=== PATIENT | female | born 1945 | race Caucasian/White ===

== ENCOUNTER 2024-04-29 14:23 | Emergency (ER) | payer SELFPAY ==
[~2024-04-29] VITALS: Ht 157.5 cm; Wt 81.6 kg
[2024-04-29 14:34] VITALS: PULSE 61; RESP 14; TEMP 97.8; O2SAT 100
[2024-04-29] MEDS ORDERED: HYDROCODONE/APAP 5MG-325MG TAB ONE (17:17)
[2024-04-29] MEDS ORDERED: MEDROL4 M2 PO (17:24)
[2024-04-29] MEDS ORDERED: ULTRAM 50MG50 MG PO (17:24)
== END 2024-04-29 18:20 | disposition home or self-care (01) ==
LOC: ER 14:45
DX: M25.561 Pain in right knee (principal); M25.461 Effusion, right knee; M54.31 Sciatica, right side
CPT/HCPCS: 93971; 99284